=== PATIENT | male | born 1945 | race Caucasian/White ===

== ENCOUNTER 2017-04-01 10:28 | Outpatient (CLI) | payer MEDICARE ==
--- NOTE | 2017-04-01 12:36 | PRG ---
DATE OF SERVICE: 04/01/2017 HISTORY: Mr. Breezy Pate is a very pleasant 71-year-old gentleman accompanied by his daugh ry who presents to the Wound Center for evaluation of a wound of the abdomen. The patient was last seen in the Wound Center in 01/2016. The patient states that shortly thereafter also in 01/2016, t he patient underwent surgery by Dr. Robbins for removal of mesh. The patient states that in January this year, the patient underwent intraoperative drainage of an abscess of the anterior abdominal w all. For the abdominal wound, the patient states he has received dressing changes of Adaptic, he st ates that he also received a trial of wet to dry dressing changes. Currently, the patient is receiv ing dressing changes of Polysporin followed by an ABD secured with VAC drape or Tegaderm. The patie nt has no other complaints today. He denies any fever or chills. The patient states that he has be en receiving dressing changes with the assistance of Home Health 3 times per week. PHYSICAL EXAMINATION: VITAL SIGNS: Temperature 97.8, pulse 81, respirations 18, blood pressure 138/73, Accu-Chek 238. ABDOMEN: Soft. A large abdominal wound is present which measures approximately 19.0 x 12.5 cm. Gr anulation tissue is visible within the wound margins. No purulent drainage is associated with the w ound. No cellulitis of the anterior abdominal wall is appreciated. No maceration of the skin of th e anterior abdominal wall is noted. ASSESSMENT AND PLAN: 1. Large abdominal wound as described above. Dressing changes of Hydrofera Blue sutured VAC drape or Tegaderm will be initiated today. These dressing changes are to be performed 3 times per week af ter cleansing and irrigation with the assistance of Home Health. I will see Mr. Pate again in two weeks. No antibiotics will be prescribed based upon the appearance of the wound. 2. Diabetes mellitus. The patient's Accu-Chek in clinic today is 238. The patient has been told t hat for optimal wound healing, his blood glucoses should remain below 150. 3. Hypertension. 4. Abdominal aortic aneurysm. 5. Gout.
== END 2017-04-01 10:29 | disposition home or self-care (01) ==
LOC: WCC 10:28
PROVIDERS: ATTEND Family Medicine
DX: S31.109D Unspecified open wound of abdominal wall, unspecified quadrant without penetration into peritoneal cavity, subsequent encounter (principal); E11.9 Type 2 diabetes mellitus without complications; I71.4 Abdominal aortic aneurysm, without rupture; I10 Essential (primary) hypertension; M10.9 Gout, unspecified
CPT/HCPCS: 97602

== ENCOUNTER 2017-04-20 09:27 | Outpatient (CLI) | payer MEDICARE ==
--- NOTE | 2017-04-20 16:07 | PRG ---
DATE OF SERVICE: 04/20/2017 HISTORY: Mr. Mathieu Pate is a very pleasant 71-year-old gentleman accompanied by his daughter who presents to the Wound Center for evaluation of wound of the abdomen. The patient was previousl y seen in the Wound Center in 01/2016. The patient stated that shortly thereafter also in 01/2016, the patient underwent surgery by Dr. Robbins for removal of mesh. The patient stated that in January of this year, the patient underwent intraoperative drainage of an abscess of the anterior abdominal wall. For the abdominal wound, the patient stated that he had received dressing changes of Adaptic. He also stated that he had received a trial of wet-to-dry dressing changes. The patient later rec eived dressing changes of Polysporin followed by an ABD secured with VAC drape or Tegaderm. At the time of the patient's visit on 04/01/2017, Mr. Pate was placed on dressing changes of Hydrofer a Blue. The patient, however, resumed dressing changes of Adaptic because of significant adherence of the Hydrofera Blue to the wound bed. PHYSICAL EXAMINATION: VITAL SIGNS: Temperature 97.4, pulse 67, respirations 18, blood pressure 150/63. Accu-Chek 148. ABDOMEN: Soft. A large abdominal wound is present which measures approximately 16.0 x 10.0 cm. Th e dimensions of the wound at the time of the patient's last visit were approximately 19.0 x 12.5 cm. Granulation tissue is visible within the wound margins. No purulent drainage is associated with t he wound. No cellulitis of the anterior abdominal wall is appreciated. No maceration of the skin o f the anterior abdominal wall is noted. ASSESSMENT AND PLAN: 1. Large abdominal wound as described above. The wound has improved in its appearance since the jarvis ochoa's last visit. Dressing changes of Adaptic and ABDs will be initiated today. These dressing c hanges are to be performed with the assistance of Home Health. I will see Mr. Pate again in 6 weeks. 2. Diabetes mellitus. The patient's Accu-Chek in clinic today is 148. The patient has been remind ed that for optimal wound healing, his blood glucoses should remain below 150. 3. Hypertension. 4. Abdominal aortic aneurysm. 5. Gout.
[2017-04-20] MEDS ORDERED: Sodium Chloride 0.9% 15 ML NEB ONE (22:49)
== END 2017-04-20 09:28 | disposition home or self-care (01) ==
LOC: WCC 09:27
PROVIDERS: ATTEND Family Medicine
DX: S30.92XD Unspecified superficial injury of abdominal wall, subsequent encounter (principal); E11.9 Type 2 diabetes mellitus without complications; I10 Essential (primary) hypertension; M10.9 Gout, unspecified; I71.4 Abdominal aortic aneurysm, without rupture
CPT/HCPCS: 97602; A4218

== ENCOUNTER 2017-05-28 13:42 | Outpatient (CLI) | payer MEDICARE ==
--- NOTE | 2017-05-28 19:45 | PRG ---
DATE OF SERVICE: 05/28/2017 HISTORY: Mr. Mathieu Pate is a very pleasant 71-year-old gentleman who presents to the Wound Ce nter for evaluation of an abdominal wound. The patient was previously seen in the Wound Center in . The patient stated that shortly thereafter also in 01/2016, the patient underwent surgery by Dr. Robbins for removal of mesh. The patient stated that in January of this year, the patient underwen t intraoperative drainage of an abscess of the anterior abdominal wall. For the abdominal wound, the patient stated that he had received dressing changes of Adaptic. He also stated that he had receive d a trial of wet to dry dressing changes. The patient later received dressing changes of Polysporin followed by an ABD secured with VAC drape or Tegaderm. At the time of the patient's visit to the [facility] on 04/01/2017, Mr. Pate was placed on dressing changes of Hydrofera Blue. The patien t, however, resume dressing changes of Adaptic because of significant adherence of Hydrofera Blue to the wound bed. PHYSICAL EXAMINATION: VITAL SIGNS: Temperature 97.5, pulse 70, respirations 18, blood pressure 141/63, Accu-Chek 179. ABDOMEN: Soft. A large abdominal wound is present, which has divided into multiple smaller wounds. The dimensions of the largest wound are approximately 12.0 x 2.0 cm. Granulation tissue is present within the margins of each wound. No purulent drainage is associated with any of the wounds. No acosta lulitis of the anterior abdominal wall is appreciated. No maceration of the skin of the anterior abd ominal wall was noted. ASSESSMENT AND PLAN: 1. Large abdominal wound as described above. As stated above, the wound has divided into multiple s maller wounds. Dressing changes of Adaptic and ABDs will be continued every other day after cleansin g and irrigation with the assistance of Home Health. I will see Mr. Pate again in 6 weeks. Th e patient has been reassured that his abdominal wound has improved in its appearance since his last v isit. 2. Diabetes mellitus. The patient's Accu-Chek in clinic today is 179. The patient has been reminde d that for optimal wound healing, his blood glucoses should remain below 150. 3. Hypertension. 4. Abdominal aortic aneurysm. 5. Gout.
== END 2017-05-28 13:43 | disposition home or self-care (01) ==
LOC: WCC 13:42
PROVIDERS: ATTEND Family Medicine
DX: T81.89XD Other complications of procedures, not elsewhere classified, subsequent encounter (principal); I71.4 Abdominal aortic aneurysm, without rupture; I10 Essential (primary) hypertension; E11.9 Type 2 diabetes mellitus without complications; M10.9 Gout, unspecified

== ENCOUNTER 2017-07-08 07:53 | Outpatient (CLI) | payer MEDICARE ==
--- NOTE | 2017-07-08 08:52 | PRG ---
DATE OF SERVICE: 07/08/2017 HISTORY: Mr. Mathieu Pate is a very pleasant 71-year-old gentleman who presents to the Wound Ce nt for evaluation of an abdominal wound. The patient was previously seen in the Wound Center in . The patient stated that shortly thereafter also in 01/2016, he underwent surgery by Dr. Jorge monroe for removal of mesh. The patient stated that in 01/2017, he underwent intraoperative drainage of a n abscess of the anterior abdominal wall. For the abdominal wound, the patient stated he had receive d dressing changes of Adaptic. He also stated that he had received a trial of wet to dry dressing ch anges. The patient later received dressing changes of Polysporin followed by an ABD secured with VAC drape or Tegaderm. At the time of the patient's visit to the Wound Center on 04/01/2017, Mr. Girish peña was placed on dressing changes of Hydrofera Blue. The patient, however, resumed dressing change s of Adaptic because of significant adherence of Hydrofera Blue to the wound bed. PHYSICAL EXAMINATION: VITAL SIGNS: Temperature 97.8, pulse 66, respirations 18, and blood pressure 131/61. Accu-Chek 214. ABDOMEN: Soft. A large abdominal wound is present which has divided into multiple smaller wounds. The dimensions of the largest wound are approximately 8.5 x 5.0 cm. Granulation tissue is present wi thin the margins of each wound. No purulent drainage is associated with any of the wounds. No cellu litis of the anterior abdominal wall is appreciated. No maceration of the skin of the anterior abdom inal wall is noted. ASSESSMENT AND PLAN: 1. Large abdominal wound as described above. As stated above, the wound has divided into multiple s maller wounds. Dressing changes of Adaptic and ABDs will be continued every other day after cleansin g and irrigation with the assistance of Home Health. I will see Mr. Pate again in 6 weeks. If the healing of the wound fails to progress in a timely manner, consideration will be given to the us e of Xeroform gauze at the time of dressing changes. The patient understands and is in agreement wit h the preceding treatment plan. 2. Diabetes mellitus. The patient's Accu-Chek in clinic today is 214. The patient has been reminde d that for optimal wound healing, his blood glucoses should remain below 150. 3. Hypertension. 4. Abdominal aortic aneurysm. 5. Gout.
== END 2017-07-08 07:54 | disposition home or self-care (01) ==
LOC: WCC 07:53
PROVIDERS: ATTEND Family Medicine
DX: S31.109A Unspecified open wound of abdominal wall, unspecified quadrant without penetration into peritoneal cavity, initial encounter (principal); E11.9 Type 2 diabetes mellitus without complications; I71.4 Abdominal aortic aneurysm, without rupture; M10.9 Gout, unspecified; I10 Essential (primary) hypertension
CPT/HCPCS: 36416; 97602

== ENCOUNTER 2017-08-24 08:17 | Outpatient (CLI) | payer MEDICARE ==
--- NOTE | 2017-08-24 09:39 | PRG ---
DATE OF SERVICE: 08/24/2017 HISTORY: Mr. Mathieu Pate is a very pleasant 71-year-old gentleman who presents to the Wound Center for evaluation of an abdominal wound. The patient was previously seen in the Wound Cent er in 01/2016. The patient stated that shortly thereafter also in 01/2016, he underwent surgery by Lisa Robbins for removal of mesh. The patient stated that in 01/2017, he underwent intraoperative drain age of an abscess of the anterior abdominal wall. For the abdominal wound, the patient stated he had received dressing changes of Adaptic. He also stated that he had received a trial of wet to dry juancho ssing changes. The patient later received dressing changes of Polysporin followed by an ABD secured with VAC drape or Tegaderm. At the time of the patient's visit to the Wound Center on 04/01/2017, Mr Miguel Pate was placed on dressing changes of Hydrofera Blue. The patient, however, resumed dressin g changes of Adaptic because of significant adherence of Hydrofera Blue to the wound bed. PHYSICAL EXAMINATION: VITAL SIGNS: Temperature 97.8, pulse 69, respirations 17, and blood pressure 153/67. Accu-Chek 96. ABDOMEN: Soft. A large abdominal wound is present which has divided into multiple smaller wounds. The largest of the smaller wounds measures approximately 2.0 x 2.0 cm. Granulation tissue is present within the margins of each wound. No purulent drainage is associated with any of the wounds. No ce llulitis of the anterior abdominal wall is appreciated. No maceration of the skin of the anterior ab dominal wall is noted. ASSESSMENT AND PLAN: 1. Large abdominal wound as described above. As stated above, the wound has divided into multiple s maller wounds. Dressing changes of Xeroform gauze and ABDs are to be performed every other day after cleansing and irrigation with the assistance of Home Health. I will see Mr. Pate again in 6 w eeks. VAC drape secured with tape will also be utilized as a secondary dressing. The patient unders tands and is in agreement with the preceding treatment plan. I have informed the patient should he h ave any irritation of the periwound secondary to the use of Xeroform gauze, he may resume dressing ch anges of Adaptic and ABDs secured with VAC drape and tape. 2. Diabetes mellitus. The patient's Accu-Chek in clinic is 96. The patient has been reminded that for optimal wound healing, his blood glucoses should remain below 150. 3. Hypertension. 4. Abdominal aortic aneurysm. 5. Gout.
[2017-08-24] MEDS ORDERED: Sodium Chloride 0.9% 15 ML NEB ONE (19:50)
== END 2017-08-24 08:18 | disposition home or self-care (01) ==
LOC: WCC 08:17
PROVIDERS: ATTEND Family Medicine
DX: T81.89XD Other complications of procedures, not elsewhere classified, subsequent encounter (principal); E11.9 Type 2 diabetes mellitus without complications; I10 Essential (primary) hypertension; I71.4 Abdominal aortic aneurysm, without rupture; M10.9 Gout, unspecified
CPT/HCPCS: A4218

== ENCOUNTER 2017-10-05 08:07 | Outpatient (CLI) | payer MEDICARE ==
[2017-10-05] MEDS ORDERED: Sodium Chloride 0.9% 15 ML NEB ONE (09:00)
--- NOTE | 2017-10-05 09:01 | PRG ---
DATE OF SERVICE: 10/05/2017 HISTORY: Mr. Mathieu Pate is a very pleasant 71-year-old gentleman who presents to the Wound Center for evaluation of an abdominal wound. The patient was previously seen in the Wound Center in 01/2016. The patient stated that shortly thereafter, also in 01/2016, he underwent surgery by Dr. Robbins for removal of mesh. The patient stated that in 01/2017, he underwent intraoperative drainage of an abscess of the anterior abdominal wall. For the abdominal wound, the patient stated, he had received dressing changes of Adaptic. He also stated that he had received a trial of wet to dry dressing changes. The patient later received dressing changes of Polysporin followed by an ABD secured with VAC drape or Tegaderm. At the time of the patient's visit to the Wound Center on 04/01/2017, Mr. Pate was placed on dressing changes of Hydrofera Blue. The patient, however, resumed dressing changes of Adaptic because of significant adherence of Hydrofera Blue to the wound bed. PHYSICAL EXAMINATION: VITAL SIGNS: Temperature 97.8, pulse 65, respirations 18, blood pressure 145/ 64. Accu-Chek 142. ABDOMEN: Soft. A large abdominal wound is present which has divided into multiple smaller wounds. The largest of the smaller wounds measures approximately 8.0 x 2.0 cm. No purulent drainage is associated with any of the wounds. No cellulitis of the anterior abdominal wall is appreciated. No maceration of the skin of the anterior abdominal wall is noted. A new wound of the right lower quadrant is present which the patient states is associated with significant drainage. ASSESSMENT AND PLAN: 1. Large abdominal wound as described above. As stated above, the wound has divided into multiple smaller wounds. Dressing changes of Xeroform gauze, ABDs , and VAC drape secured with tape are to be performed every other day after cleansing and irrigation with the assistance of Home Health. I will see Mr. Pate again in 6 weeks. I have told the patient because the new wound of the right lower quadrant may represent a fistula, he should schedule an appointment with his general surgeon for further evaluation. 2. Diabetes mellitus. The patient's Accu-Chek in clinic today is 142. The patient has been reminded that for optimal wound healing, his blood glucoses should remain below 150. 3. Hypertension. 4. Abdominal aortic aneurysm. 5. Gout. MTDD
== END 2017-10-05 08:08 | disposition home or self-care (01) ==
LOC: WCC 08:07
PROVIDERS: ATTEND Family Medicine
DX: E11.622 Type 2 diabetes mellitus with other skin ulcer (principal); L98.499 Non-pressure chronic ulcer of skin of other sites with unspecified severity; I10 Essential (primary) hypertension; I71.4 Abdominal aortic aneurysm, without rupture; M10.9 Gout, unspecified
CPT/HCPCS: 97602; A4218

== ENCOUNTER 2017-11-16 08:38 | Outpatient (CLI) | payer MEDICARE ==
[~2017-11-16 08:38] MED LIST: Sodium Chloride 0.9% 15 ML NEB ONE
--- NOTE | 2017-11-16 10:04 | PRG ---
DATE OF SERVICE: 11/16/2017 HISTORY: Mr. Mathieu Pate is a very pleasant 71-year-old gentleman who presents to the Wound Center for evaluation of an abdominal wound. The patient was previously seen in the Wound Cent er in 01/2016. The patient stated that shortly thereafter also in 01/2016, he underwent surgery by Lisa Robbins for removal of mesh. The patient stated that in 01/2017, he underwent intraoperative drain age of an abscess of the anterior abdominal wall. For the abdominal wound, the patient stated he had received dressing changes of Adaptic. He also stated that he had received a trial of wet-to-dry juancho ssing changes. The patient later received dressing changes of Polysporin followed by an ABD secured with VAC drape or Tegaderm. At the time of the patient's visit to the Wound Center on 04/01/2017, Mr Miguel Pate was placed on dressing changes of Hydrofera Blue. The patient, however, resumed dressin g changes of Adaptic because of significant adherence of Hydrofera Blue to the wound bed. Most recen tly, the patient has been receiving dressing changes of Xeroform gauze, ABDs, and VAC drape secured w ith tape every other day after cleansing and irrigation. PHYSICAL EXAMINATION: VITAL SIGNS: Temperature 97.9, pulse 66, respirations 17, blood pressure 128/69. Accu-Chek 138. ABDOMEN: Soft. A large abdominal wound is present which has divided into multiple smaller wounds. The largest of the smaller wounds measures approximately 10.5 x 4.0 cm. No purulent drainage is asso ciated with any of the wounds. No cellulitis of the anterior abdominal wall is appreciated. No mace ration of the skin of the anterior abdominal wall is noted. ASSESSMENT AND PLAN: 1. Large abdominal wound as described above. As stated above, the wound has divided into multiple s maller wounds. Dressing changes of Xeroform gauze will be discontinued. Dressing changes of Medihon ey gauze and VAC drape secured with tape are to be performed on a daily basis after cleansing and irr igation with the assistance of Home Health. Telfa may be utilized as needed at the time of dressing changes for adherence of gauze to the wound bed of the ulcerations. I will see Mr. Pate again in 6 weeks. 2. Diabetes mellitus. The patient's Accu-Chek in clinic today is 138. The patient has been reminde d that for optimal wound healing, his blood glucoses should remain below 150. 3. Hypertension. 4. Abdominal aortic aneurysm. 5. Gout.
== END 2017-11-16 08:39 | disposition home or self-care (01) ==
LOC: WCC 08:38
PROVIDERS: ATTEND Family Medicine
DX: T81.89XD Other complications of procedures, not elsewhere classified, subsequent encounter (principal); E11.9 Type 2 diabetes mellitus without complications; I10 Essential (primary) hypertension; I71.4 Abdominal aortic aneurysm, without rupture; M10.9 Gout, unspecified
CPT/HCPCS: 97602; A4218

== ENCOUNTER 2017-12-28 07:48 | Outpatient (CLI) | payer MEDICARE ==
[2017-12-28] MEDS ORDERED: Sodium Chloride 0.9% 15 ML NEB ONE (09:00)
--- NOTE | 2017-12-28 09:20 | PRG ---
DATE OF SERVICE: 12/28/2017 HISTORY: Mr. Mathieu Pate is a very pleasant 72-year-old gentleman who presents to the Wound Ce nt for evaluation of an abdominal wound. The patient was previously seen in the Wound Center in . The patient stated that shortly thereafter also in 01/2016, he underwent surgery by Dr. Jorge monroe for removal of mesh. The patient stated that in 01/2017, he underwent intraoperative drainage of a n abscess of the anterior abdominal wall. For the abdominal wound, the patient stated he had receive d dressing changes of Adaptic. He also stated that he had received a trial of wet to dry dressing ch anges. The patient later received dressing changes of Polysporin followed by an ABD secured with VAC drape or Tegaderm. At the time of the patient's visit to the Wound Center on 04/01/2017, Mr. Girish peña was placed on dressing changes of Hydrofera Blue. The patient, however, resumed dressing change s of Adaptic because of significant adherence of Hydrofera Blue to the wound bed. Recently, the mc ent received dressing changes of Xeroform gauze, ABDs, and VAC drape secured with tape every other da y after cleansing and irrigation. Since the patient's last visit, Mr. Pate received dressing c hanges of Medihoney. He states that he resumed dressing changes of Xeroform gauze, because of more b leeding associated with his wound with Medihoney. PHYSICAL EXAMINATION: VITAL SIGNS: Temperature 97.9, pulse 69, respirations 17, blood pressure 140/63. Accu-Chek 72. ABDOMEN: Soft. The large abdominal wound has almost healed completely. Only the four small wounds are visible on exam today. No purulent drainage is associated with any of the wounds. No cellulitis of the anterior abdominal wall is appreciated. No maceration of the skin of the anterior abdominal wall is noted. For bleeding associated with one of the small abdominal wounds, SurgiSeal was applied in one layer. This wound is associated with a varicosity of the anterior abdominal wall. ASSESSMENT AND PLAN: 1. Large abdominal wound as described above. As stated above, only four small wounds are present on exam today. Dressing changes of Xeroform gauze followed by an ABD and VAC drape secured with tape a re to be performed on a daily basis after cleansing and irrigation with the assistance of Home Health . Surgicel will also be continued as needed for bleeding associated with a varicosity. I will see Sujatha Pate again in 6 weeks. 2. Diabetes mellitus. The patient's Accu-Chek in clinic today is 72. The patient has been reminded that for optimal wound healing, his blood glucoses should remain below 150. 3. Hypertension. 4. Abdominal aortic aneurysm. 5. Gout.
== END 2017-12-28 07:49 | disposition home or self-care (01) ==
LOC: WCC 07:48
PROVIDERS: ATTEND Family Medicine
DX: T81.89XD Other complications of procedures, not elsewhere classified, subsequent encounter (principal); E11.9 Type 2 diabetes mellitus without complications; I10 Essential (primary) hypertension; I71.4 Abdominal aortic aneurysm, without rupture; M10.9 Gout, unspecified
CPT/HCPCS: 97602; A4218

== ENCOUNTER 2018-02-15 07:45 | Outpatient (CLI) | payer MEDICARE ==
--- NOTE | 2018-02-15 09:14 | PRG ---
DATE OF SERVICE: 02/15/2018 HISTORY: Mr. Mathieu Pate is a very pleasant 72-year-old gentleman, who presents to the Wound C enter for evaluation of an abdominal wound. The patient was previously seen in the Wound Center in 01/2016. The patient stated that shortly thereafter, also in 01/2016, he underwent surgery by Dr. Charles maldonado for removal of mesh. The patient stated that in 01/2018, he underwent intraoperative drainage of an abscess of the anterior abdominal wall. For the abdominal wound, the patient stated he had recei rm dressing changes of Adaptic. He also stated that he had received a trial of wet-to-dry dressing changes. The patient later received dressing changes of Polysporin followed by an ABD secured with V AC drape or Tegaderm. At the time of the patient's visit to the Wound Center on 04/01/2017, Mr. Anthony levine was placed on dressing changes of Hydrofera Blue. The patient, however, resumed dressing kennedy ges of Adaptic, because of significant adherence of Hydrofera Blue to the wound bed. Recently, the p atient received dressing changes of Xeroform gauze, ABDs, and back drape secured with tape every othe r day after cleansing and irrigation. Subsequently, the patient received a trial of dressing changes with Medihoney. The patient stated that he resumed dressing changes of Xeroform gauze, because of m ore bleeding associated with his wound with dressing changes of Medihoney. PHYSICAL EXAMINATION: VITAL SIGNS: Temperature 98.1, pulse 72, blood pressure 141/64. ABDOMEN: Soft. The large abdominal wound has almost completely healed. Only five small wounds are visible on exam today. No purulent drainage is associated with any of the wounds. No cellulitis of the anterior abdominal wall is appreciated. No maceration of the skin of the anterior abdominal wall is noted. ASSESSMENT AND PLAN: 1. Large abdominal wound as described above. As stated above, only 5 small wounds are present on ex am today. Dressing changes of Promogran and Xeroform gauze and ABD and back drape secured with tape are to be performed on a daily basis after cleansing and irrigation with the assistance of Home Healt h. I will see Mr. Pate again in 6 weeks. 2. Diabetes mellitus. Accu-Cheks will be obtained at the time of the patient's clinic visits. The patient has been reminded that for optimal wound healing, his blood glucoses should remain below 150. 3. Hypertension. 4. Abdominal aortic aneurysm. 5. Gout.
== END 2018-02-15 07:46 | disposition home or self-care (01) ==
LOC: WCC 07:45
PROVIDERS: ATTEND Family Medicine
DX: T81.89XD Other complications of procedures, not elsewhere classified, subsequent encounter (principal); E11.9 Type 2 diabetes mellitus without complications; I10 Essential (primary) hypertension; I71.4 Abdominal aortic aneurysm, without rupture; M10.9 Gout, unspecified

== ENCOUNTER 2018-04-05 08:32 | Outpatient (CLI) | payer MEDICARE ==
--- NOTE | 2018-04-05 09:45 | PRG ---
DATE OF SERVICE: 04/05/2018 HISTORY: Mr. Mathieu Pate is a very pleasant 72-year-old gentleman who presents to the Wound Ce nter for evaluation of an abdominal wound. Since the patient's last visit, Mr. Pate has been r eceiving dressing changes of Promogran followed by Xeroform gauze. an ABD and VAC drape every other d ay after cleansing and irrigation with the assistance of Home Health. The patient has also received trials of Adaptic wet to dry dressing changes of Polysporin, Hydrofera Blue and Medihoney. The patie nt states that he did not note any improvement in the appearance of his wound with dressing changes o f Promogran in conjunction with Xeroform gauze. The patient has no other complaints today. He denie s any fever or chills. PHYSICAL EXAMINATION: VITAL SIGNS: Temperature 97.7, pulse 71, respirations 17, blood pressure 152/68. Accu-Chek 123. ABDOMEN: Soft. Two superficial open areas of the large abdominal wound are noted on exam today. No purulent drainage is associated with either open area. No cellulitis of the anterior abdominal wall is appreciated. No maceration of the skin of the anterior abdominal wall is noted. ASSESSMENT AND PLAN: 1. Large abdominal wound as described above. As stated above, only 2 superficial open areas are pre sent on exam today. Dressing changes of Xeroform gauze, ABDs, and VAC drape will be resumed. These dressing changes are to be performed on a daily basis after cleansing and irrigation with the assista nce of Home Health. I will see Mr. Pate again in 8 weeks. The patient understands and is in a greement with the preceding treatment plan. 2. Diabetes mellitus. The patient's Accu-Chek in clinic today is 123. The patient has been reminde d that for optimal wound healing, his blood glucoses should remain below 150. 3. Hypertension. 4. Abdominal aortic aneurysm. 5. Gout.
== END 2018-04-05 08:33 | disposition home or self-care (01) ==
LOC: WCC 08:32
PROVIDERS: ATTEND Family Medicine
DX: S31.109D Unspecified open wound of abdominal wall, unspecified quadrant without penetration into peritoneal cavity, subsequent encounter (principal); I10 Essential (primary) hypertension; E11.9 Type 2 diabetes mellitus without complications; I71.4 Abdominal aortic aneurysm, without rupture
CPT/HCPCS: 97602

== ENCOUNTER 2018-05-24 07:35 | Outpatient (CLI) | payer MEDICARE ==
[2018-05-24] MEDS ORDERED: Sodium Chloride 0.9% 15 ML NEB ONE (09:00)
--- NOTE | 2018-05-24 09:50 | PRG ---
DATE OF SERVICE: 05/24/2018 SUBJECTIVE: Mr. Mathieu Pate is a very pleasant 72-year-old gentleman, who presents to [facility] for evaluation of an abdominal wound. Since the patient's last visit, Mr. Pate has been receiving dressing changes of Xeroform gauze, ABD, and VAC drape on a daily basis after cleansing and irrigation with the assistance of Home Health. The patient has also received trials of Adaptic, wet-to-dry dressing changes, polysporin, Hydrofera Blue, and Medihoney. The patient also received a trial of dressing changes of Promogran in conjunction with Xeroform gauze. The patient has no complaints today. He denies any fever or chills. OBJECTIVE: VITAL SIGNS: Temperature 97.8, pulse 73, respirations 19, and blood pressure 130/60. Accu-Chek 128. ABDOMEN: Soft. No open areas are noted on exam today. No cellulitis of the anterior abdominal wall is appreciated. ASSESSMENT AND PLAN: 1. Large abdominal wound as described above. As stated above, no open areas are present on exam today. Dressing changes of Xeroform gauze, ABDs, and VAC drape will be continued on a daily basis after cleansing and irrigation with the assistance of Home Health. I will see Mr. Pate again in 6 to 8 weeks. 2. Diabetes mellitus. The patient's Accu-Chek in clinic today is 128. The patient has been reminded, that for optimal wound healing, his blood glucoses should remain below 150. 3. Hypertension. 4. Abdominal aortic aneurysm. 5. Gout. Job ID: [id number]
== END 2018-05-24 07:36 | disposition home or self-care (01) ==
LOC: WCC 07:35
PROVIDERS: ATTEND Family Medicine
DX: T81.89XD Other complications of procedures, not elsewhere classified, subsequent encounter (principal); I10 Essential (primary) hypertension; E11.9 Type 2 diabetes mellitus without complications; I71.4 Abdominal aortic aneurysm, without rupture; M10.9 Gout, unspecified
CPT/HCPCS: A4218

== ENCOUNTER 2018-07-12 09:15 | Outpatient (CLI) | payer MEDICARE ==
--- NOTE | 2018-07-12 09:17 | PRG ---
DATE OF SERVICE: 07/12/2018 HISTORY: Mr. Mathieu Pate is a very pleasant 72-year-old gentleman, who presents to the [facility] for evaluation of an abdominal wound. Since the patient's last visit, Mr. Pate has been receiving dressing changes of Xeroform gauze, an ABD, and VAC drape on a daily basis after cleansing and irrigation with the assistance of Home Health. The patient has previously received trials of Adaptic, wet-to-dry dressing changes, Polysporin, Hydrofera Blue, and Medihoney. The patient has also received a trial of dressing changes of Promogran in conjunction with Xeroform gauze. Mr. Pate has no complaints today. He denies any fever or chills. He does report bleeding from prominent veins over the anterior abdominal wall, which response to the application of Surgicel. PHYSICAL EXAMINATION: VITAL SIGNS: Temperature 97.7, pulse 79, respirations 18, and blood pressure 124/60. ABDOMEN: Soft. Fixed. Open areas are noted on today's exam. All of the areas are small and superficial. No cellulitis of the anterior abdominal wall is appreciated. LABORATORY DATA: Accu-Chek 124. ASSESSMENT AND PLAN: 1. History of large abdominal wound. As stated above, 6 small superficial wounds are present on today's exam. Dressing changes of Xeroform gauze, ABDs, and VAC drape will be continued on a daily basis after cleansing and irrigation with the assistance of Home Health. I will see Mr. Pate again in 6 to 8 weeks. 2. Diabetes mellitus. The patient's Accu-Chek in clinic today is 124. The patient has been reminded that for optimal wound healing, his blood glucoses should remain below 150. 3. Hypertension. 4. Abdominal aortic aneurysm. 5. Gout. Job ID: [id number]
[2018-07-12] MEDS ORDERED: Sodium Chloride 0.9% 15 ML NEB ONE (15:00)
== END 2018-07-12 09:16 | disposition home or self-care (01) ==
LOC: WCC 09:15
PROVIDERS: ATTEND Family Medicine
DX: S31.109D Unspecified open wound of abdominal wall, unspecified quadrant without penetration into peritoneal cavity, subsequent encounter (principal); E11.9 Type 2 diabetes mellitus without complications; I71.4 Abdominal aortic aneurysm, without rupture; M10.9 Gout, unspecified
CPT/HCPCS: 97602; A4218

== ENCOUNTER 2018-08-23 10:02 | Outpatient (CLI) | payer MEDICARE ==
--- NOTE | 2018-08-23 09:10 | PRG ---
DATE OF SERVICE: 08/23/2018 HISTORY: Mr. Mathieu Pate is a very pleasant 72-year-old gentleman, who presents to the [facility] for evaluation of an abdominal wound. Since the patient's last visit, Mr. Pate has been receiving dressing changes of Xeroform gauze followed by an ABD on a daily basis after cleansing and irrigation with the assistance of Home Health. Previously, the patient received trials of Adaptic, wet-to-dry dressing changes, Polysporin, Hydrofera Blue, and Medihoney. The patient has also received a trial of dressing changes of Promogran in conjunction with Xeroform gauze. The patient has no complaints today. He denies any fever or chills. He again reports bleeding from prominent veins over the anterior abdominal wall, which responds to the application of Surgicel. PHYSICAL EXAMINATION: VITAL SIGNS: Pulse 69, respirations 18, and blood pressure 133/61. ABDOMEN: Soft. Superficial wounds in a diffuse distribution are noted on exam today. All of the wounds are small. No cellulitis of the anterior abdominal wall is appreciated. LABORATORY DATA: Accu-Chek 130. ASSESSMENT AND PLAN: 1. History of large abdominal wound. As stated above, small superficial wounds in a diffuse distribution are present on exam today. Dressing changes of Xeroform gauze followed by an ABD will be continued on a daily basis after cleansing and irrigation with the assistance of Home Health. I will see Mr. Pate again in 6 to 8 weeks. 2. Diabetes mellitus. The patient's Accu-Chek in clinic today is 130. The patient has been reminded that for optimal wound healing his blood glucoses should remain below 150. 3. Hypertension. 4. Abdominal aortic aneurysm. 5. Gout. Job ID: [id number]
== END 2018-08-23 10:03 | disposition home or self-care (01) ==
LOC: WCC 10:02
PROVIDERS: ATTEND Family Medicine
DX: T81.89XD Other complications of procedures, not elsewhere classified, subsequent encounter (principal); E11.9 Type 2 diabetes mellitus without complications; I10 Essential (primary) hypertension; I71.4 Abdominal aortic aneurysm, without rupture; M10.9 Gout, unspecified
CPT/HCPCS: 97602

== ENCOUNTER 2018-09-20 10:33 | Outpatient (CLI) | payer MEDICARE ==
--- NOTE | 2018-09-20 11:51 | BD ---
BONE DENSITOMETRY USING DEXA: HISTORY: Postmenopausal screening for osteoporosis. LUMBAR SPINE BMD (g/cm2) T-SCORE Z-SCORE L1 0.874 -1.8 -0.9 L2 0.895 -1.8 -0.8 L3 0.923 -1.6 -0.7 L4 1.025 -0.6 0.4 TOTAL 0.921 -1.5 -0.6 NECK 0.517 -3.0 -1.8 TOTAL 0.735 -2.0 -1.2 IMPRESSION: Osteoporosis. POS: [facility]
== END 2018-09-20 10:34 | disposition home or self-care (01) ==
LOC: BICMAMMO 10:33
PROVIDERS: ATTEND Family Medicine
DX: Z13.820 Encounter for screening for osteoporosis (principal); M81.0 Age-related osteoporosis without current pathological fracture
CPT/HCPCS: 77080

== ENCOUNTER 2018-10-18 08:24 | Outpatient (CLI) | payer MEDICARE ==
--- NOTE | 2018-10-18 09:42 | PRG ---
DATE OF SERVICE: 10/18/2018 HISTORY: Mr. Mathieu Pate is a very pleasant 72-year-old gentleman, who presents to the wound center for evaluation of an abdominal wound. Since the patient's last visit, Mr. Pate has been receiving dressing changes of Xeroform gauze followed by an ABD on a daily basis after cleansing and irrigation with the assistance of home health. Previously, the patient received trials of Adaptic, wet-to-dry dressing changes, Polysporin, Hydrofera Blue, and Medihoney. The patient has also received a trial of dressing changes of Promogran in conjunction with Xeroform gauze. The patient reports bleeding occasionally from prominent veins over the anterior abdominal wall, which responds to the application of Surgicel. The patient has no other complaints today. He denies any fever or chills. PHYSICAL EXAMINATION: VITAL SIGNS: Temperature 97.6, pulse 66, respirations 16, and blood pressure 130/62. Accu-Chek 98. ABDOMEN: Soft, only one superficial ulceration over the anterior abdominal wall remains. The dimensions of the wound are approximately 1.2 x 0.6 cm. No purulent drainage is associated with the wound. No erythema of the skin surrounding the wound is present. No maceration of the skin of the periwound is noted. ASSESSMENT AND PLAN: 1. History of large abdominal wound as stated above only one small superficial wound over the anterior abdominal wall remains dressing changes of Xeroform gauze followed by an ABD will be continued on a daily basis after cleansing and irrigation with the assistance of home health. I will see Mr. Pate again in 6 to 8 weeks. The patient has been provided with Surgicel. 2. Diabetes mellitus. The patient's Accu-Chek in clinic today is 98. The patient has been reminded that for optimal wound healing, his blood glucoses should remain below 150. 3. Hypertension. 4. Abdominal aortic aneurysm. 5. Gout. Job ID: [id number]
[2018-10-18] MEDS ORDERED: Sodium Chloride 0.9% 15 ML NEB ONE (18:00)
== END 2018-10-18 08:25 | disposition home or self-care (01) ==
LOC: WCC 08:24
PROVIDERS: ATTEND Family Medicine
DX: T81.89XD Other complications of procedures, not elsewhere classified, subsequent encounter (principal); E11.9 Type 2 diabetes mellitus without complications; I10 Essential (primary) hypertension; I71.4 Abdominal aortic aneurysm, without rupture; M10.9 Gout, unspecified
CPT/HCPCS: A4218

== ENCOUNTER 2018-12-06 14:22 | Outpatient (CLI) | payer MEDICARE ==
--- NOTE | 2018-12-06 13:50 | PRG ---
DATE OF SERVICE: 12/06/2018 HISTORY: Mr. Mathieu Pate is a very pleasant 72-year-old gentleman, who presents to the [facility] Center for evaluation of 2 abdominal wounds. The patient states he developed blisters of the anterior abdominal wall, which ruptured spontaneously. The patient has been dressing both wounds with Xeroform followed by an ABD. The patient states that he will no longer be receiving dressing changes with the assistance of Home Health. Previously, the patient received trials of Adaptic, wet-to-dry dressing changes, Polysporin, Hydrofera Blue, and Medihoney. The patient also received a trial of dressing changes of Promogran in conjunction with Xeroform gauze. The patient previously reported bleeding occasionally from prominent veins over the anterior abdominal wall, which responds to the application of Surgicel. The patient has no other complaints today. He denies any fever or chills. PHYSICAL EXAMINATION: VITAL SIGNS: Temperature 97.6, pulse 58, respirations 17, blood pressure 136/62. Accu-Chek 114. ABDOMEN: Soft. Two superficial ulcerations over the anterior abdominal wall are present. The dimensions of the wounds are 1.9 x 2.9 cm and 1.9 x 3.0 cm. No purulent drainage is associated with either wound. No erythema of the skin surrounding either wound is present. No maceration of the skin of the periwound of either wound is noted. ASSESSMENT AND PLAN: 1. History of large abdominal wound. As stated above, only 2 superficial wounds of the anterior abdominal wall remain. Dressing changes of Xeroform gauze followed by an ABD will be continued on a daily basis after cleansing and irrigation. The patient will be performing his own dressing changes. I will see Mr. Pate again in 4 weeks. 2. Diabetes mellitus. The patient's Accu-Chek in clinic today is 114. The patient has been reminded that for optimal wound healing, his blood glucoses should remain below 150. 3. Hypertension. 4. Abdominal aortic aneurysm. 5. Gout. Job ID: [id number]
== END 2018-12-06 14:23 | disposition home or self-care (01) ==
LOC: WCC 14:22
PROVIDERS: ATTEND Family Medicine
DX: S31.109D Unspecified open wound of abdominal wall, unspecified quadrant without penetration into peritoneal cavity, subsequent encounter (principal); E11.9 Type 2 diabetes mellitus without complications; I10 Essential (primary) hypertension; I71.4 Abdominal aortic aneurysm, without rupture; M10.9 Gout, unspecified
CPT/HCPCS: 36415; 36416; 80053; 80061; 82728; 83036; 83540; 83550; 84439; 84443; 84481; 85025; 85046

== ENCOUNTER 2019-01-03 09:29 | Outpatient (CLI) | payer MEDICARE ==
--- NOTE | 2019-01-03 09:07 | PRG ---
DATE OF SERVICE: 01/03/2019 HISTORY: Mr. Mathieu Pate is a very pleasant 73-year-old gentleman, who presents to the wound center for evaluation of two abdominal wounds. Today, the patient reports intermittent bleeding of the anterior abdominal wall. He states that he must dress his entire anterior abdominal wall with Aquaphor followed by an ABD in order to prevent the intermittent bleeding. The patient has no other complaints today. He denies any fever or chills. PHYSICAL EXAMINATION: VITAL SIGNS: Temperature 97.6, pulse 70, respirations 18, and blood pressure 137/65. Accu-Chek 126. ABDOMEN: Soft, only one superficial ulceration over the anterior abdominal wall remains. The dimensions of the wound are approximately 0.2 x 0.5 cm. Scant serous drainage is associated with the wound. No erythema of the skin surrounding the wound is present. No maceration of the skin of the periwound is noted. ASSESSMENT AND PLAN: 1. History of large abdominal wound as stated above only one wound of the anterior abdominal wall remains. Dressing changes of Aquaphor to the entire anterior abdominal wall will be continued followed by an ABD. The patient will continue to perform his own dressing changes. I will see Mr. Pate again in 3 months. 2. Diabetes mellitus. The patient's Accu-Chek in clinic today is 126. The patient has been reminded that for optimal wound healing, his blood glucoses should remain below 150. 3. Hypertension. 4. Abdominal aortic aneurysm. 5. Gout. Job ID: [id number]
== END 2019-01-03 09:30 | disposition home or self-care (01) ==
LOC: WCC 09:29
PROVIDERS: ATTEND Family Medicine
DX: E11.622 Type 2 diabetes mellitus with other skin ulcer (principal); L98.499 Non-pressure chronic ulcer of skin of other sites with unspecified severity; I10 Essential (primary) hypertension; I71.4 Abdominal aortic aneurysm, without rupture; M10.9 Gout, unspecified
CPT/HCPCS: 97602

== ENCOUNTER 2019-03-14 08:01 | Outpatient (CLI) | payer MEDICARE ==
[2019-03-14] MEDS ORDERED: Sodium Chloride 0.9% 15 ML NEB ONE (09:00)
--- NOTE | 2019-03-14 09:34 | PRG ---
DATE OF SERVICE: 03/14/2019 HISTORY: Mr. Mathieu Pate is a very pleasant 73-year-old gentleman, who presents to the Wound Center for evaluation of multiple wounds of the anterior abdominal wall. Again, today the patient reports intermittent bleeding of the anterior abdominal wall. The patient has been performing dressing changes with Aquaphor followed by an ABD. The patient states that he utilizes Surgicel when he experiences bleeding of the anterior abdominal wall. PHYSICAL EXAMINATION: VITAL SIGNS: Temperature 97.8, pulse 78, respirations 18, blood pressure 145/66. Accu-Chek 115. ABDOMEN: Soft. Multiple ulcerations of the anterior abdominal wall are present over an area which measures approximately 15.0 x 8.0 cm. Moderate serosanguineous drainage is associated with the wounds. No cellulitis of the anterior abdominal wall is appreciated. No maceration of the skin of the anterior abdominal wall is noted. ASSESSMENT AND PLAN: 1. Multiple ulcerations of the anterior abdominal wall over an area which measures 15.0 x 8.0 cm. Dressing changes of Xeroform followed by ABDs will be initiated today. The patient will continue to perform his own dressing changes. I will see Mr. Pate again in 3 months. Arrangements will be made for the home delivery of dressing supplies. The patient will be provided with Surgicel for intermittent bleeding from the anterior abdominal wall. 2. Diabetes mellitus. The patient's Accu-Chek in clinic today is 115. The patient has been reminded that for optimal wound healing his blood glucoses should remain below 150. 3. Hypertension. 4. Abdominal aortic aneurysm. 5. Gout. Job ID: [id number]
== END 2019-03-14 08:02 | disposition home or self-care (01) ==
LOC: WCC 08:01
PROVIDERS: ATTEND Family Medicine
DX: E11.622 Type 2 diabetes mellitus with other skin ulcer (principal); L98.499 Non-pressure chronic ulcer of skin of other sites with unspecified severity; I10 Essential (primary) hypertension; M10.9 Gout, unspecified; I71.4 Abdominal aortic aneurysm, without rupture
CPT/HCPCS: A4218

== ENCOUNTER 2019-08-11 20:30 | Outpatient (CLI) | payer MEDICARE | END 2019-08-11 20:31 | disposition home or self-care (01) | LOC: SLEEPLAB 20:30 | PROVIDERS: ATTEND Internal Medicine Pulmonary Disease | DX: G47.33 Obstructive sleep apnea (adult) (pediatric) (principal); R53.83 Other fatigue; R40.0 Somnolence; R06.83 Snoring; E66.9 Obesity, unspecified; Z68.28 Body mass index [BMI] 28.0-28.9, adult | CPT/HCPCS: 95810; 95811 ==